=== PATIENT | male | born 1970 | race Caucasian/White ===

== ENCOUNTER 2022-08-26 18:54 | Emergency (ER) | payer OTHER, SELFPAY ==
--- NOTE | ~2022-08-26 | US_ITS ---
EXAMINATION: US EXTREMITY NONVASCULAR LIMITED CLINICAL INFORMATION: 52-year-old male with arm pain. History of hyperextension. Evaluate for a biceps tendon rupture. COMPARISON: None TECHNIQUE: Sonographic imaging in the area of concern in the region of the left antecubital fossa and distal biceps was performed by the technologist using a high-resolution linear transducer. Note that there was no radiologist on site to perform a physical examination or scan the patient independent from the technologist. This interpretation is therefore relying on the images acquired by the technologist. FINDINGS: Within the area of pain, the fiber technologist has identified with fluid collection along the expected area of musculotendinous junction of the distal biceps. The area of fluid collection measures 1.3 cm transverse, 3 cm long 0.7 cm AP. The visualized tendon in this area of injury appears represent distal biceps tendon and it has a retracted, wavy appearance. The tendon is incompletely evaluated on this examination. The degree of tendon retraction from its insertion cannot be measured on this limited examination. If clinically necessary, an MR imaging examination of the elbow could be performed to further evaluate the distal biceps muscle and its tendon (and to allow visualization of the radial tuberosity insertion site). US/US extremity nonvascular martinez IMPRESSION: Sonographic findings are consistent with a distal biceps tendon rupture. There is an abnormal amount of fluid surrounding the retracted tendon which is incompletely visualized on this exam.
[2022-08-26 19:06] VITALS: BP 113/71; PULSE 84; RESP 18; TEMP 37; O2SAT 96; BMI 36.0
--- NOTE | 2022-08-26 19:10 | ED.UPPEXIN ---
HPI - Extremity Injury (Upper) General Chief Complaint: Extremity Injury, Upper Stated Complaint: Bicep Injury Time Seen by Provider: 08/26/22 20:30 Related Data Previous Rx's Medication Instructions Recorded ibuprofen 600 mg tablet 600 mg PO Q6H PRN fever or pain 08/26/22 #30 tabs Allergies Allergy/AdvReac Type Severity Reaction Status Date / Time No Known Allergies Allergy Verified 08/26/22 19:13 PMFSH Social History Social History Smoked in Last 30 Days: No Use of substances other than those prescribed or required for medical reasons: No Advance Directives: No Advance Directives Information Provided: Yes Physical Exam Vital Signs: Vital Signs: Last Vital Signs Temp 98.0 F 08/26/22 20:48 Pulse 68 08/26/22 20:48 Resp 18 08/26/22 20:48 BP 135/80 08/26/22 20:48 Pulse Ox 97 08/26/22 20:48 O2 Del Method 08/26/22 20:48 BMI result Body Mass Index 36.0 Course Course Course Narrative: RME--52 yo M w/no sig PMHx c/o L arm pain s/p hyper-extending arm while holding cord and door shutting on cord and falling forward while arm was stuck back. Denies head trauma or LOC Appreciable deformity to left upper arm with palpable depression at biceps insertion site. Flexion intact, full extension limited due to pain. Neurovascular intact distally US ordered Discharge Plan Discharge Clinical Impression: Traumatic partial tear of left biceps tendon Patient Disposition: Home, Self-Care Instructions: Tendon Rupture (ED) Additional Instructions: You have left biceps distal tendon rupture Rest your left arm Avoid lifting from left arm keep your left arm in sling Tylenol/Motrin for pain Follow-up with orthopedic surgeon tomorrow Prescriptions: New ibuprofen 600 mg tablet 600 mg PO Q6H PRN (Reason: fever or pain) Qty: 30 0RF Referrals: Brandon Ross MD [Physician] - 3 days Interventions: ED Discharge Assessment Last Done: 08/26/22 21:53 Discharge Date/Time: 08/26/22 21:53
[2022-08-26 20:48] VITALS: BP 135/80; PULSE 68; RESP 18; TEMP 36.7; O2SAT 97
--- NOTE | 2022-08-26 20:48 | PC.NURSE ---
pt c/o L bicep injury attempting to avoid trip/fall and pulled bicep trying to grab onto door nearby aox4 no apparent distress, resting quietly
--- NOTE | 2022-08-26 21:42 | ED.EXTPRO ---
HPI - Extremity Problem General Chief complaint: Extremity Injury, Upper Stated complaint: Bicep Injury Time Seen by Provider: 08/26/22 20:30 Source: patient Mode of arrival: ambulatory Limitations: no limitations History of Present Illness HPI Narrative: Patient injured his left arm when he tripped on snow thrower over extension cord hypertended his L arm, felt snapping sound, no other injury Related Data Previous Rx's Medication Instructions Recorded ibuprofen 600 mg tablet 600 mg PO Q6H PRN fever or pain 08/26/22 #30 tabs Allergies Allergy/AdvReac Type Severity Reaction Status Date / Time No Known Allergies Allergy Verified 08/26/22 19:13 Review of Systems Review of Systems: Yes all other systems are reviewed and are negative FOR[facility]LY [facility], [facility] Social History Social History Smoked in Last 30 Days: No Use of substances other than those prescribed or required for medical reasons: No Advance Directives: No Advance Directives Information Provided: Yes Physical Exam Vital Signs: Vital Signs: Last Vital Signs Temp 98.0 F 08/26/22 20:48 Pulse 68 08/26/22 20:48 Resp 18 08/26/22 20:48 BP 135/80 08/26/22 20:48 Pulse Ox 97 08/26/22 20:48 O2 Del Method 08/26/22 20:48 BMI result Body Mass Index 36.0 Appearance: Alert. Oriented X3. No acute distress. ENT: Pharynx normal. Oral Mucosa moist Neck: Normal inspection. Neck supple. CVS: Normal heart rate and rhythm. Pulses normal. Respiratory: No respiratory distress. Equal air entry bilateral, Skin: Skin warm and dry. Normal skin color. Normal skin turgor. Extremities: No lower extremity edema. Left arm tenderness with gap feeling in the distal biceps, prominence of biceps muscle, no tenderness in the shoulder area neurovascular intact Neuro: Oriented X 3. Extrem: Shoulder/upper arm images: 1. Tenderness and gap in the muscle at the distal biceps left arm painful supination and flexion of the left arm neurovascular intact Medical Decision Making Medical Decision Making MDM Narrative: Patient clinically with biceps distal tendon rupture with pain in flexion supination ultrasound showed fluid collection with retracted tendon. Case discussed with [facility] of Orthopedics Dr. Ross plan to see the patient in 2 days, sling was applied Discharge Plan Discharge Clinical Impression: Traumatic partial tear of left biceps tendon Patient Disposition: Home, Self-Care Instructions: Tendon Rupture (ED) Additional Instructions: You have left biceps distal tendon rupture Rest your left arm Avoid lifting from left arm keep your left arm in sling Tylenol/Motrin for pain Follow-up with orthopedic surgeon tomorrow Prescriptions: New ibuprofen 600 mg tablet 600 mg PO Q6H PRN (Reason: fever or pain) Qty: 30 0RF Referrals: Brandon Ross MD [Physician] - 3 days
== END 2022-08-26 21:53 | disposition home or self-care (01) ==
PROVIDERS: Emergency Provider Internal Medicine
DX: S46.212A Strain of muscle, fascia and tendon of other parts of biceps, left arm, initial encounter (principal); W18.49XA Other slipping, tripping and stumbling without falling, initial encounter; Y93.29 Activity, other involving ice and snow; Y92.017 Garden or yard in single-family (private) house as the place of occurrence of the external cause; Y99.9 Unspecified external cause status
CPT/HCPCS: 76882; 99284

== ENCOUNTER → 2022-09-01 13:08 | Outpatient (BNVA) | payer OTHER, SELFPAY | PROVIDERS: PCP Internal Medicine; Visit Provider Physician Assistant | DX: S46.212D Strain of muscle, fascia and tendon of other parts of biceps, left arm, subsequent encounter (principal) | CPT/HCPCS: 99202 ==

== ENCOUNTER 2022-09-02 10:45 | Day surgery (SDC) | payer OTHER, SELFPAY ==
[2022-09-02] VITALS (10 sets, daily range): BP systolic 103–135; BP diastolic 61–82; PULSE 62–89; RESP 14–25; TEMP 36.8–37.1; O2SAT 91–97; BMI 36.0
--- NOTE | ~2022-09-02 | FL_ITS ---
CLINICAL INDICATION: Left distal biceps repair. FINDINGS: Technical assistance and equipment were provided by the Department of Radiology during intraoperative fluoroscopy for left distal biceps repair. 1, limited fluoroscopic spot image is submitted. A radiologist was not present during the procedure. The image is not labeled left versus right. The image demonstrates what appears to be a surgical retractor to project over the humeral head. The tip of a second, jatin-shaped metallic structure projects over the proximal radius. The image is available for review on PACS. TOTAL FLUOROSCOPY TIME: 12 seconds. DOSE AREA PRODUCT: 0.04 Gy-cm2 (simms-centimeter squared) FL/FL guidance in OR IMPRESSION: Technical assistance and equipment provided by the Department of Radiology during intraoperative fluoroscopy, as above. Please see operative report for further details.
[2022-09-02] MEDS: Lactated Ringers 1,000 ML 100 ML IVCONT (11:26)
--- NOTE | 2022-09-02 12:33 | MHC.SHP ---
Pre-Procedural Eval Section A Date of Service: 09/02/22 The patient is an INPATIENT: No Changes since office visit: No Cold of Flu in the past 2 weeks, No New Medical Problems, No Changes in Medication and No Patient answered all questions The History & Physical has been completed within 30 days and I have reviewed it.: Yes Section B Chief Complaint: Laceration of muscle, fascia and tendon of long Allergies: Allergies Allergy/AdvReac Type Severity Reaction Status Date / Time No Known Allergies Allergy Verified 09/01/22 13:19 Plan I have reviewed the history and physical and performed a pertinent physical examination on my patient. No changes have occurred unless specified. Time Spent With Patient Time: Total time managing care of this patient today ____ minutes.
--- NOTE | 2022-09-02 13:04 | HO.ANESPROP2 ---
HPI - Anesthesia Eval Consult details Narrative: 52 yr old male with ALEXIS, High chol, depression , Gerd; obese, etoh 3 beers daily PMFSH Past Medical History Medical History (Updated 09/02/22 @ 11:06 by Radha Damico RN) H/O drainage of abscess History of high cholesterol Sleep apnea Family History Family history of problems with anesthesia: No Surgical History Surgical History (Updated 09/02/22 @ 11:01 by Radha Damico RN) History of nasal surgery History of Problems with Anesthesia: No Social History Social History (Updated 09/01/22 @ 13:20 by Hanh Aguilera) Alcohol intake: current Alcohol intake frequency: holidays/special occasions only Patient Tobacco Use Status: Former Tobacco user Tobacco use type: Cigarette Use of substances other than those prescribed or required for medical reasons: No Are you DNR?: No Advance Directives: No Advance Directives Information Provided: Yes Recently lost weight without trying: No Nutrition Risks: No Nutritional Risk Current occupational status: employed Current occupation: automotive maintenance technician/ right hand dominant Meds Allergies Allergy/AdvReac Type Severity Reaction Status Date / Time No Known Allergies Allergy Verified 09/01/22 13:19 Exam Exam Date and Time: September 02, 2022 1304 Height,Weight and Vital Signs: Height 5 ft 7 in Weight 104.326 kg Last Vital Signs Temp 98.4 F 09/02/22 11:10 Pulse 62 09/02/22 11:10 Resp 16 09/02/22 11:10 BP 103/73 09/02/22 11:10 Pulse Ox 97 09/02/22 11:10 O2 Del Method 09/02/22 11:10 Airway Mallampati Class: II Neck ROM: Full Heart: rrr Lungs: cta Assessment and Plan Assessment Anesthesia Assessment: Anesthesia Plan Discussed Final Anesthetic Review Family History of Problems with Anesthesia: No History of Problems with Anesthesia: No NPO: No ASA Class: III Final Preanesthetic Review: No Changes in Pt Med Stat, Meds/Allgs Chart Reviewed, Consent Obtained/Reviewed and Anes Risks/Benef Reviewed Patient Risk: Intermediate Procedure Risk: Intermediate Anesthetic Plan Anesthetic Plan: GA Disposition: Standard PACU
--- NOTE | 2022-09-02 15:26 | P.BOP_ITS ---
Brief Operative Note Date of Service: 09/02/22 Pre-op diagnosis: Left distal biceps rupture Post-op diagnosis: same Procedure: Left distal biceps repair Implants: Arthrex suture button with interference screw Surgeon: Brandon Ross MD Anesthesia: GETA and local Was an Milanese Knitting Machine Operator used for this Procedure?: Yes Milanese Knitting Machine Operator: Gladys Lui Estimated blood loss (mL): 5 Tourniquet time (min): 55 IV fluids (mL): 1,000 Pathology: none sent Condition: stable Disposition: PACU
--- NOTE | 2022-09-04 12:18 | W.PM.OPN ---
Operative Note Operative Note Date of Service: 09/02/22 Narrative: Date of Service: 09/02/22 Pre-op diagnosis: Left distal biceps rupture Post-op diagnosis: same Procedure: Left distal biceps repair Implants: Arthrex suture button with interference screw Surgeon: Brandon Ross MD Anesthesia: GETA and local Was an Analyst Geochemical Prospecting used for this Procedure?: Yes Analyst Geochemical Prospecting: Gladys Lui Estimated blood loss (mL): 5 Tourniquet time (min): 55 IV fluids (mL): 1,000 Pathology: none sent Condition: stable Disposition: PACU Patient was brought to the operating room and placed supine on the surgical table. He was prepped and draped in standard sterile fashion and a time out was called to identify proper site, proper procedure and IV antibiotics per weight were administered. I began by exsanguinating the limb and insufflating the tourniquet to 250 mm Hg. A transverse incision was made over the proximal forearm and careful dissection was taken down through the antecubital fossa. Care was taken to avoid the cephalic vein and the biceps sheath was digitally explored and voluminous serosanguineous fluid was expressed. Biceps was retracted incompletely torn. An Allis clamp was used to retrieve it. I then debrided and whipstitched the tendonuntil it fit through an 8 Sizer. I then identified the biceps insertion on the radial tuberosity and a bicortical beefpin was drilled and then the near cortex was overdrilled with an 8.5 Reamer. I then dunked the button through the 2nd cortex and while in flexion dunked the tendon into the bone. Interference screw was then used to further solidify the construct. Once I was satisfied with the stability the elbow was taken through full range of motion. The biceps was stable and the motion was full. I then irrigated copiously. Tourniquet was let down. There was no brisk bleeding. Layered closure was performed with absorbable suture and skin glue on the skin. Patient was placed in sterile dressing extubated brought to recovery room stable condition there were no known complications.
== END 2022-09-02 17:25 | disposition home or self-care (01) ==
PROVIDERS: Visit Provider Orthopaedic Surgery
PROC: (CPT 24341; principal; 2022-09-02 18:20)
DX: S46.122A Laceration of muscle, fascia and tendon of long head of biceps, left arm, initial encounter (principal); X58.XXXA Exposure to other specified factors, initial encounter; Y93.89 Activity, other specified; Y92.89 Other specified places as the place of occurrence of the external cause; Y99.8 Other external cause status; G47.33 Obstructive sleep apnea (adult) (pediatric); E78.00 Pure hypercholesterolemia, unspecified; K21.9 Gastro-esophageal reflux disease without esophagitis; Z99.89 Dependence on other enabling machines and devices; Z79.1 Long term (current) use of non-steroidal anti-inflammatories (NSAID); Z87.891 Personal history of nicotine dependence
CPT/HCPCS: 24342; C1713; J0131; J0690; J1100; J1170; J1885; J2405; J3010

== ENCOUNTER → 2022-09-15 14:05 | Outpatient (BNVA) | payer OTHER, SELFPAY | PROVIDERS: Visit Provider Physician Assistant ==

== ENCOUNTER → 2022-10-16 13:31 | Outpatient (BNVA) | payer OTHER, SELFPAY | PROVIDERS: Visit Provider Physician Assistant | DX: S46.219D Strain of muscle, fascia and tendon of other parts of biceps, unspecified arm, subsequent encounter (principal) | CPT/HCPCS: 99212 ==

== ENCOUNTER → 2022-11-14 11:12 | Outpatient (BNVA) | payer OTHER, SELFPAY | PROVIDERS: Visit Provider Orthopaedic Surgery | DX: M70.22 Olecranon bursitis, left elbow (principal); S46.219D Strain of muscle, fascia and tendon of other parts of biceps, unspecified arm, subsequent encounter | CPT/HCPCS: 20605; 99212 ==

== ENCOUNTER 2023-05-12 17:36 | Emergency (ER) | payer OTHER, SELFPAY ==
--- NOTE | ~2023-05-12 | XR_ITS ---
EXAMINATION: XR FOOT, RIGHT CLINICAL INFORMATION: Pain of right foot COMPARISON: None available. TECHNIQUE: 3 views of the right foot. FINDINGS: Bones have normal alignment throughout the foot. No acute fracture or subluxation. Small osteophytes are present at the mildly degenerated great toe metatarsophalangeal joint. No erosions or periostitis. No focal soft tissue swelling. XR/XR foot RT min 3V IMPRESSION: * No evidence of metatarsal stress fracture. No acute abnormalities within the foot. 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
--- NOTE | 2023-05-12 18:52 | ED.GENADULT ---
HPI - General Adult General Chief complaint: Extremity Injury, Lower Stated complaint: right foot pain work injury Time Seen by Provider: 05/13/23 00:46 Source: patient Mode of arrival: ambulatory Limitations: no limitations History of Present Illness HPI narrative: Patient is a 53-year-old male presents emergency department for evaluation of pain to the right medial ankle. He reports earlier today he was using a step ladder painting and bathroom, denies any overt injury. Approximately 1 hour later he developed increasing pain to the right medial ankle with localized swelling. Pain increased throughout the day while walking on it which prompted his presentation to the emergency department. Denies any recent overt injury. Denies numbness, tingling, cold sensation to the foot. Denies redness, warmth, fevers, chills. Denies calf pain, personal history of DVT/PE/malignancy, recent surgery or prolonged immobilization, known coagulation disorders. Denies chest pain or shortness of breath Related Data Home Medications Medication Instructions Recorded Confirmed atorvastatin 10 mg tablet 10 mg PO BEDTIME 10/16/22 omeprazole 20 mg capsule,delayed 20 mg PO DAILY 10/16/22 release trazodone 50 mg tablet 25 mg PO DAILY 10/16/22 venlafaxine 37.5 mg 37.5 mg PO DAILY 10/16/22 capsule,extended release 24 hr Allergies Allergy/AdvReac Type Severity Reaction Status Date / Time No Known Allergies Allergy Verified 05/12/23 18:59 Review of Systems Review of Systems: Yes all other systems are reviewed and are negative PMFSH Past Medical History Attestation statement: The following information was validated with the patient. Source: old records reviewed Medical History H/O drainage of abscess Sleep apnea History of high cholesterol Surgical History History of nasal surgery Social History Social History Alcohol intake: current Alcohol intake frequency: holidays/special occasions only Patient Tobacco Use Status: Former Tobacco user Tobacco use type: Cigarette Advance Directives: No Advance Directives Information Provided: No Current occupational status: employed Current occupation: preventive maintenance coordinator/ right hand dominant Physical Exam ED Vital Signs: Vital Signs - 24 hr 05/12/23 18:53 05/13/23 00:44 Temperature 97.7 F 97.6 F Pulse Rate 69 78 Respiratory Rate 18 20 Blood Pressure 137/81 122/80 Pulse Oximetry 98 98 Oxygen Delivery Method Room Air Room Air BMI result Body Mass Index 35.2 Appearance: Alert.?Oriented to person, place and time. No acute distress.?Normal affect. Neck: Normal inspection.? Neck supple.?? CVS: Heart sounds normal. Normal heart rate and rhythm.? Pulses normal.?? Respiratory: No respiratory distress.? Lung sounds clear to auscultation bilaterally?? Abdomen: Soft and non-tender. Normoactive bowel sounds. ? Skin: Skin warm and dry.? Normal skin color.? ? Extremities: Right lower extremity with soft tissue swelling to the medial malleolus extending towards the midfoot. No erythema. No warmth. No rashes or lesions. No wounds.? No calf ttp? Neuro: Moves all extremities spontaneously. Sensation intact bilaterally. Ambulates with normal steady gait. Course Course Course Narrative: This is an RME: Additional HPI, ROS, PE not included below will be deferred to primary provider.53 year old male presents w/ right foot pain and swelling X 1 day started hurting while at work. Reports pain worse w/ movement better at rest. Denies blunt trauma. Plan- xray Medications Administered Discontinued Medications Generic Name Dose Route Start Last Admin Trade Name Saad PRN Reason Stop Dose Admin Acetaminophen 650 mg 05/12/23 19:00 05/12/23 19:38 Acetaminophen 325 Mg Tablet PO 05/12/23 19:01 650 mg ONCE ONE Administration Ibuprofen 400 mg 05/12/23 19:00 05/12/23 19:38 Ibuprofen 400 Mg Tablet PO 05/12/23 19:01 400 mg ONCE ONE Administration Medical Decision Making Medical Decision Making MDM Narrative: Patient is a 53-year-old male who presents emergency department for evaluation of atraumatic right ankle pain, noted soon after painting his bathroom while using a stepladder. No overt injury. Physical examination with localized swelling, mild point tenderness upon palpation. No erythema warmth or lesions, near full AROM to the ankle, not consistent with septic joint. Less likely gouty arthritis. XR imaging was obtained which reveals no acute fracture or dislocation. Wells negative, unlikely secondary to DVT, no risk factors. Discussed conservative treatment, rest, ice, Garo bandage for compression, elevation, acetaminophen/ibuprofen for pain, outpatient follow-up with primary care provider. Reviewed worrisome signs and symptoms that would warrant re-evaluation in the emergency department. All questions answered. Stable for discharge. Differential Diagnosis Differential Diagnoses: The differential diagnosis associated with the presentation includes (As noted above) Independent Interpretation I performed an independent interpretation of an: Plain X-Ray (I personally interpreted x-ray and agree with radiologist impression.) Radiology Impression Discussion of test interpretation with radiology: I have reviewed the radiologist's reading. Radiologist Impression: XR/XR foot RT min 3V IMPRESSION: * No evidence of metatarsal stress fracture. No acute abnormalities within the foot. 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 Tests considered The following testing was considered but not selected: Considered venous duplex ultrasound, see narrative above Prescription Management I considered prescription management with: Pain Medication (Acetaminophen/ibuprofen) Discharge Plan Discharge Clinical Impression: Ankle pain Patient Disposition: Home, Self-Care Instructions: R.I.C.E. Treatment (ED) Prescriptions: No Action venlafaxine 37.5 mg capsule,extended release 24hr 37.5 mg PO DAILY trazodone 50 mg tablet 25 mg PO DAILY atorvastatin 10 mg tablet 10 mg PO BEDTIME omeprazole 20 mg capsule,delayed release(DR/EC) 20 mg PO DAILY Referrals: Physician,Unknown J [Primary Care Provider] -
[2023-05-12 18:53] VITALS: BP 137/81; PULSE 69; RESP 18; TEMP 36.5; O2SAT 98; BMI 35.2
[2023-05-12] MEDS: Ibuprofen 400 MG TABLET PO (19:38)
[2023-05-12] MEDS: Acetaminophen 325 MG TABLET 650 MG PO (19:38)
[2023-05-13 00:44] VITALS: BP 122/80; PULSE 78; RESP 20; TEMP 36.4; O2SAT 98
== END 2023-05-13 01:50 | disposition home or self-care (01) ==
PROVIDERS: Emergency Provider Emergency Medicine
DX: M25.571 Pain in right ankle and joints of right foot (principal); Z79.899 Other long term (current) drug therapy
CPT/HCPCS: 73630; 99283; 99284